=== PATIENT | female | born 1985 | race Caucasian/White ===

== ENCOUNTER 2022-12-14 12:32 | Emergency (ER) | payer MEDICAID, OTHER ==
[~2022-12-14] VITALS: Ht 162 cm; Wt 77.0 kg
[2022-12-14 12:45] VITALS: BP 134/92
--- NOTE | 2022-12-14 12:52 | ED General ---
General Chief Complaint: Allergic Reaction Stated Complaint: RASH; ITCHING Source of Information: Patient Exam Limitations: No Limitations History of Present Illness Date Seen by Provider: Dec 14, 2022 Time Seen by Provider: 12:34 Initial Comments 37-year-old female with no pertinent past medical history coming in due to concerns for having poison lisa. She was weed eating and noticed that a few days ago, started itching, now has been using Benadryl as well as Benadryl cream, but it is very bothersome to her. She was curious if she could get a steroid shot. Denies any fever, chest pain, shortness of breath, or any other concerns Allergies and Home Medications Allergies Coded Allergies: pertussis vaccine,adsorbed (Verified Allergy, Unknown, 12/14/22) Patient Home Medication List Home Medication List Reviewed: Yes Review of Systems Review of Systems Constitutional: No fever EENTM: no symptoms reported Respiratory: no symptoms reported Cardiovascular: no symptoms reported Gastrointestinal: no symptoms reported Genitourinary: no symptoms reported Musculoskeletal: no symptoms reported Skin: see HPI Past [id number]-[id number] Hx Patient Social History Tobacco Use?: Yes Tobacco type used: Cigarettes Smoking Status: Current Everyday Smoker Use of E-Cig and/or Vaping dev: Unable to obtain Substance use?: Yes Substance type: Marijuana Substance frequency: Once in a while Alcohol Use?: No Physical Exam Vital Signs Capillary Refill : Height, Weight, BMI Height: '" Weight: lbs. oz. kg; BMI Method: General Appearance: No Apparent Distress, WD/WN Eyes: Bilateral Eye Normal Inspection HEENT: PERRL/EOMI Neck: Full Range of Motion Respiratory: Lungs Clear Cardiovascular: Regular Rate, Rhythm Gastrointestinal: No Distended Neurologic/Psychiatric: Alert Skin: Rash (Erythematous papular lesions and some linear distributions along her legs, arms, face, and back, there are excoriations around them) Progress/Results/Core Measures Suspected Sepsis SIRS Temperature: Pulse: Respiratory Rate: Blood Pressure / Mean: Results/Orders Vital Signs/I&O Capillary Refill : Progress Note : Progress Note 37-year-old female coming in due to a pruritic rash. ABCs were intact and vitals were stable on presentation. She has no red flags, no mucosal involvement, no signs of SJS or TE N clinically. She is afebrile and overall well-appearing. Clinically it does appear like a contact dermatitis likely from poison lisa given the clinical history. We will give her a shot of Decadron here. I recommended a steroids taper, but the patient states she does not tolerate long-term steroids, and she would much prefer a one-time dose because she "hulks out". I am agreeable to this at this time. She will be given an IM shot of Decadron and will be discharged home afterwards. Departure Impression Primary Impression: Contact dermatitis Qualified Codes: L23.7 - Allergic contact dermatitis due to plants, except food Disposition: HOME, SELF-CARE Condition: Stable Departure-Patient Inst. Decision time for Depature: 13:00 Referrals: NO,LOCAL PHYSICIAN (PCP/Family) Primary Care Physician Patient Instructions: Poison Lisa, Poison [place], Poison [place] ED Add. Discharge Instructions: It does appear like poison lisa on exam. The steroids may help, but there is potential that he will bounce back after they wear off. You can continue to use Benadryl for itching. You can also try things such as [id number] calamine lotion or oatmeal baths. Please follow-up with your regular doctor if you are not seeing improvement in the next week or so. Work/School Note: Work Release Form Date Seen in the Emergency Department: Dec 14, 2022 Return to Work: Dec 15, 2022 Restrictions: No Restrictions ALVERTO ASHER MD Dec 14, 2022 12:52
== END 2022-12-14 13:10 | disposition home or self-care (01) ==
LOC: ER FS 12:34
DX: L25.9 Unspecified contact dermatitis, unspecified cause (principal); F17.210 Nicotine dependence, cigarettes, uncomplicated
CPT/HCPCS: 99284